=== PATIENT | female | born 1980 | race Caucasian/White ===

== ENCOUNTER 2018-02-13 11:49 | Emergency (ER) | payer BC ==
--- OUTSIDE RECORDS SUMMARY | 2018-02-13 11:52 | XMS REPORT | Clinical Summary ---
:1980 Author Organization [facility] Address [address] [place] [address] Care Team Providers Name Role Phone Tessa Montano MD Primary Care Provider Allergies Active Allergy Reactions Severity Noted Date Comments Iodine Swelling High 03/26/2016 Blisters, peeling Medications Medication Sig Dispensed Refills Start Date End Date Status busPIRone (BUSPAR) Take 7.5 mg by 0 Active 7.5 MG tablet mouth 3 (three) times a day. phentermine Take 37.5 mg by 0 04/17/2017 Discontinued (ADIPEX-P) 37.5 MG mouth every capsule morning. IBUPROFEN ORAL Take by mouth 0 05/11/2017 Discontinued as needed. nicotine Chew 1 each (2 100 each 1 06/15/2017 07/15/2017 polacrilex mg total) as (NICORETTE) 2 mg needed for gum smoking cessation (every 1-2 hours as needed to decrease smoking urge) for up to 30 days. nicotine Chew 1 each (2 100 each 0 06/15/2017 07/15/2017 polacrilex mg total) as (NICORETTE) 2 mg needed for gumIndications: smoking Smoker cessation for up to 30 days. Active Problems Problem Noted Date Class 2 obesity due to excess calories with body mass index (BMI) of 36.0 06/2017 to 36.9 in adult History of ovarian cancer 05/04/2017 Encounters Date Type Specialty Care Team Description 08/11/2017 Documentation Oncology Emily Bocanegra MD 08/05/2017 Office Visit Oncology Emily Bocanegra Abnormal mammogram MD Sinan (Primary Dx) 08/05/2017 Hospital Encounter Radiology Emily Bocanegra H/O benign breast biopsy; MD Sinan Abnormal mammogram 08/05/2017 Hospital Encounter Radiology Emily Bocanegra H/Radhika benign breast biopsy; MD Sinan Abnormal mammogram 08/04/2017 Telephone Oncology Emily oBcanegra MD 06/25/2017 Telephone Oncology Emily Bocanegra MD 06/15/2017 Lab Lab Emily Bocanegra MD 06/15/2017 Lab Lab Emily Bocanegra H/Radhika benign breast biopsy; MD Sinan Abnormal mammogram 06/15/2017 Office Visit Oncology Emily Bocanegra/Radhika benign breast biopsy ( Primary Dx); MD Sinan Abnormal mammogram; Smoker; Class 2 obesity without serious comorbidity with body mass index (BMI) of 36.0 to 36.9 in adult, unspecified obesity type; Family history of ovarian cancer 06/03/2017 Hospital Encounter Radiology Levon Lau Abnormal Kam CHIU MD breast 06/03/2017 Hospital Encounter Levon Kenyon Breast giancarlo Humphrey MD 06/03/2017 Hospital Encounter Levon Kenyon L., MD breast 06/03/2017 Telephone Obstetrics and Levon Lau Gynecology MD Kam 06/02/2017 Telephone Obstetrics Levon Chappell Gynecology MD Kam 05/28/2017 Hospital Encounter Levon Kenyon MD 05/28/2017 Hospital Encounter Levon Kenyon MD 05/28/2017 Hospital Encounter Levon Kenyon MD 05/28/2017 Hospital Encounter Levon Kenyon MD 05/28/2017 Hospital Encounter Radiology Levon Lau MD 05/28/2017 Hospital Encounter Radiology Levon Lau MD 05/28/2017 Hospital Encounter Levon Kenyon MD 05/28/2017 Hospital Encounter Levon Kenyon Breast giancarlo Humphrey MD 05/28/2017 Hospital Encounter Levon Kenyon MD 05/20/2017 Transcribe Orders Levon Kenyon MD (Primary Dx) 05/20/2017 Transcribe Orders Radiology Levon Lau Breast giancarlo Humphrey MD (Primary Dx) 05/20/2017 Transcribe Orders Radiology Levon Lau MD 05/20/2017 Transcribe Orders Radiology Levon Lau MD 05/20/2017 Transcribe Orders Radiology Levon Lau Breast giancarlo Humphrey MD (Primary Dx) 05/19/2017 Telephone Obstetrics Levon Chappell MD 05/18/2017 Orders Only Obstetrics and Ayala, Mya, Abnormal MRI, Gynecology MA breast (Primary Dx) 05/18/2017 Telephone Gynecologic Oncology Levon Lau MD 05/14/2017 Telephone Gynecologic Oncology Jamie Hernandez MD 05/13/2017 Telephone Gynecologic Oncology Jamie Hernandez MD 05/12/2017 Orders Only Obstetrics and Levon Lau MD 05/11/2017 Hospital Encounter Radiology Jamie Hernandez MD Abnormal mammogram 05/05/2017 Orders Only Gynecologic Oncology Jw, Abnormal mammogram MICHAEL Gil (Primary Dx) 05/04/2017 Office Visit Levon Montalvo History of ovarian cancer (Primary Dx); Bhaskar Humphrey MD Class 2 obesity due to excess calories without serious comorbidity with body mass index (BMI) of 36.0 to 36.9 in adult 05/04/2017 Telephone Gynecologic Oncology Jamie Hernandez MD 04/29/2017 Transcribe Orders Radiology Jamie Hernandez MD Abnormal mammogram (Primary Dx) 04/29/2017 Telephone Gynecologic Oncology Jamie Hernandez MD 04/28/2017 Orders Only Gynecologic Oncology [place], Left breast mass MICHAEL Gil (Primary Dx) 04/27/2017 Hospital Encounter Radiology Jamie Hernandez MD Breast density; Abnormal mammogram 04/27/2017 Hospital Encounter Radiology Jamie Hernandez MD Breast density; Abnormal mammogram 04/27/2017 Hospital Encounter Radiology Jamie Hernandez MD Breast density; Abnormal mammogram 04/27/2017 Telephone Gynecologic Oncology Lisandra Proctor RN 04/27/2017 Documentation Gynecologic Oncology Lisandra Proctor RN 04/27/2017 Telephone Radiology Carmelita Stanley RN 04/24/2017 Telephone Gynecologic Oncology Jamie Hernandez MD 04/17/2017 Telephone Obstetrics and Jamie Hernandez MD Gynecology 04/17/2017 Telephone Radiology Julio Lewis RN 04/16/2017 Orders Only Gynecologic Oncology [place], Breast mass, left ( Primary Dx); MICHAEL Gil Breast density; Abnormal mammogram 04/15/2017 Telephone Gynecologic Oncology Jamie Hernandez MD 04/13/2017 Lab Lab Jamie Hernandez MD History of ovarian cancer 04/13/2017 Office Visit Gynecologic Oncology Jamie Hernandez MD History of ovarian cancer (Primary Dx) after 02/12/2017 Family History Medical History Relation Name Comments Uterine cancer Maternal Aunt Cervical cancer Maternal Grandfather Stomach cancer Paternal Aunt Cervical cancer Paternal Grandfather Relation Name Status Comments Maternal Aunt Maternal Grandfather Paternal Aunt Paternal Grandfather Social History Tobacco Use Types Packs/Day Years Used Date Current Every Day Smoker Cigarettes 0.5 Started: 03/26/1996 Smokeless Tobacco: Never Used Tobacco Cessation: Ready to Quit: Yes Comments: states ' i will be quitting' Alcohol Use Drinks/Week oz/Week Comments No Sex Assigned at Date Recorded Not on file Job Start Date Occupation Industry Not on file Not on file Not on file Travel History Travel Start Travel End No recent travel history available. Last Filed Vital Signs Vital Sign Reading Time Taken Blood Pressure 136/79 08/05/2017 11:33 AM CDT Pulse 88 08/05/2017 11:33 AM CDT Temperature 36.6 C (97.9 F) 08/05/2017 11:33 AM CDT Respiratory Rate - - Oxygen Saturation - - Inhaled Oxygen Concentration - - Weight 89.6 kg (197 lb 9 oz) 08/05/2017 11:33 AM CDT Height 157.5 cm (5' 2") 08/05/2017 11:33 AM CDT Body Mass Index 36.13 08/05/2017 11:33 AM CDT Plan of Treatment Health Maintenance Due Date Last Done Comments CERVICAL CANCER SCREENING 01/13/2001 INFLUENZA VACCINE 09/30/2017 Procedures Procedure Name Priority Date/Time Associated Comments Diagnosis US BREAST COMPLETE Routine 08/05/2017 11:24 H/O benign breast Results for this BILATERAL AM CDT biopsy procedure are in Abnormal mammogram the results section. MAMMO DIAGNOSTIC W CAD Routine 08/05/2017 10:15 H/O benign breast Results for this BILATERAL AM CDT biopsy procedure are in Abnormal mammogram the results section. ESTRADIOL LEVEL Routine 06/15/2017 10:14 H/O benign breast Results for this AM CDT biopsy procedure are in the results section. LUTEINIZING HORMONE Routine 06/15/2017 10:14 H/O benign breast Results for this AM CDT biopsy procedure are in the results section. FOLLICLE STIMULATING Routine 06/15/2017 10:14 H/O benign breast Results for this HORMONE AM CDT biopsy procedure are in Abnormal mammogram the results section. MAMMO DIAGNOSTIC W CAD Routine 06/03/2017 2:19 Abnormal MRI, Results for this RIGHT PM CDT breast procedure are in the results section. SURGICAL PATHOLOGY Routine 06/03/2017 2:17 Results for this REQUEST PM CDT procedure are in the results section. MRI BREAST W WO Routine 06/03/2017 1:43 Breast mass Results for this CONTRAST RIGHT PM CDT procedure are in the results section. MRI BREAST BIOPSY Routine 06/03/2017 1:42 Abnormal MRI, Results for this RIGHT PM CDT breast procedure are in the results section. MAMMO DIAGNOSTIC Routine 05/28/2017 11:57 Breast mass Results for this BIOPSY FOLLOW UP (NO AM CDT procedure are in CHARGE) the results section. STEREOTACTIC BREAST Routine 05/28/2017 11:56 Breast mass Results for this BIOPSY LEFT AM CDT procedure are in the results section. SURGICAL PATHOLOGY Routine 05/28/2017 11:47 Results for this REQUEST AM CDT procedure are in the results section. MRI BREAST W WO Routine 05/11/2017 10:27 Abnormal mammogram Results for this CONTRAST BILATERAL AM CDT procedure are in the results section. MAMMO BREAST Routine 04/27/2017 11:25 Breast density Results for this DIAGNOSTIC AM FIFTH HAND Abnormal mammogram procedure are in TOMOSYNTHESIS LEFT the results section. INHIBIN B Routine 04/13/2017 4:58 History of ovarian Results for this PM FIFTH HAND cancer procedure are in the results section. MAMMO EXTERNAL STUDY Routine 03/31/2017 11:07 Results for this AM FIF[facility] procedure are in the results section. US BREAST EXTERNAL Routine 03/31/2017 11:06 Results for this STUDY AM FIF[facility] HAND procedure are in the results section. MAMMO EXTERNAL STUDY Routine 02/26/2017 11:08 Results for this AM FIFTH HAND procedure are in the results section. after 02/12/2017 Results US Breast Complete Bilateral (08/05/2017 11:24 AM CDT) Addenda Addendum by Kannan Rocha MD on 08/12/2017 1:18 PM ADDENDUM #1 Addendum comparison report. The prior mammograms and ultrasounds from 2012 are here for comparison that were tear at the time of original study of 08/05/2017. There appears to be a intramammary lymph node in the left breast with the same measurement as today's exam, largest 10.5 mm. No obvious changes. Change of impression: Prominent intramammary lymph node left axillary tail. Recommendation: follow-up 1 year. BI-RADS Category 2: Benign findings. Annual mammography recommended Narrative Performed At EXAMINATION:MAMMO DIAGNOSTIC W CAD BILATERAL, US BREAST COMPLETE [facility] BILATERAL INDICATION:Z98.890. Other specified postprocedure states. R92.8. Other abnormal and inconclusive findings on diagnostic imaging. 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 An MR biopsy revealed the same finding in May 2017 on the right. This is six-month follow-up from January 2017 mammograms. COMPARISON:Follow-up from 06/03/2017 and mammograms go back to February 26, 2017, at outside institution mammograms. FINDINGS: There are scattered areas of fibroglandular density.There is some mild architectural distortion noted in the right upper outer quadrant associated with a small M clip, the MR guided biopsy. There is a biopsy clip with an associated small hematoma noted in the upper central posterior left breast. The transverse measurement is 9.5 mm. In the left upper outer quadrant or axillary tail of the left breast is a mass that appears to contain fat density, thus suggestive of a intramammary lymph node measuring around 14 mm x 9 mm. Bilateral whole breast sonography was performed with close supervision. This included sonographic evaluation of all 4 quadrants as well as the subareolar regions bilaterally.] Shows a oval well-circumscribed hypoechoic 4.3 mm x 1.9 mm mass or small complex cyst in the 12:00 position. The postbiopsy scar from MR guided biopsy is seen in the right upper outer quadrant. Left breast: There is a hypoechoic lobulated solid mass measuring 1.05 cm x 0.4 cm x 0.46 cm this suggests a intramammary lymph node at mid depth toward the axillary tail. This appears to be the same mammographic finding in the left upper outer quadrant. IMPRESSION:Possibly just prominent intramammary lymph node left axillary tail versus a mass. RECOMMENDATION: Recommend ultrasound-guided core biopsy. BI-RADS 4: SUSPICIOUS. Mildly suspicious characteristics. [id number] Procedure Note Hm Interface, Radiology Results - 08/05/2017 11:44 AM CDT EXAMINATION: MAMMO DIAGNOSTIC W CAD BILATERAL, US BREAST COMPLETE BILATERAL INDICATION: Z98.890. Other specified postprocedure states. R92.8. Other abnormal and inconclusive findings on diagnostic imaging. 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 An MR biopsy revealed the same finding in May 2017 on the right. This is six-month follow-up from January 2017 mammograms. COMPARISON: Follow-up from 06/03/2017 and mammograms go back to February 26, 2017, at outside institution mammograms. FINDINGS: There are scattered areas of fibroglandular density. There is some mild architectural distortion noted in the right upper outer quadrant associated with a small M clip, the MR guided biopsy. There is a biopsy clip with an associated small hematoma noted in the upper central posterior left breast. The transverse measurement is 9.5 mm. In the left upper outer quadrant or axillary tail of the left breast is a mass that appears to contain fat density, thus suggestive of a intramammary lymph node measuring around 14 mm x 9 mm. Bilateral whole breast sonography was performed with close supervision. This included sonographic evaluation of all 4 quadrants as well as the subareolar regions bilaterally. ] Shows a oval well-circumscribed hypoechoic 4.3 mm x 1.9 mm mass or small complex cyst in the 12:00 position. The postbiopsy scar from MR guided biopsy is seen in the right upper outer quadrant. Left breast: There is a hypoechoic lobulated solid mass measuring 1.05 cm x 0.4 cm x 0.46 cm this suggests a intramammary lymph node at mid depth toward the axillary tail. This appears to be the same mammographic finding in the left upper outer quadrant. IMPRESSION: Possibly just prominent intramammary lymph node left axillary tail versus a mass. RECOMMENDATION: Recommend ultrasound-guided core biopsy. BI-RADS 4: SUSPICIOUS. Mildly suspicious characteristics. [email or web address] Performing Organization Address City/State/Zipcode Phone Number [facility] [address] [place] [address] Mammo Diagnostic w Cad Bilateral (08/05/2017 10:15 AM CDT) Addenda Addendum by Kannan Rocha MD on 08/12/2017 1:18 PM ADDENDUM #1 Addendum comparison report. The prior mammograms and ultrasounds from 2012 are here for comparison that were tear at the time of original study of 08/05/2017. There appears to be a intramammary lymph node in the left breast with the same measurement as today's exam, largest 10.5 mm. No obvious changes. Change of impression: Prominent intramammary lymph node left axillary tail. Recommendation: follow-up 1 year. BI-RADS Category 2: Benign findings. Annual mammography recommended Narrative Performed At EXAMINATION:MAMMO DIAGNOSTIC W CAD BILATERAL, US BREAST COMPLETE [facility] BILATERAL INDICATION:Z98.890. Other specified postprocedure states. R92.8. Other abnormal and inconclusive findings on diagnostic imaging. 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 An MR biopsy revealed the same finding in May 2017 on the right. This is six-month follow-up from January 2017 mammograms. COMPARISON:Follow-up from 06/03/2017 and mammograms go back to February 26, 2017, at outside institution mammograms. FINDINGS: There are scattered areas of fibroglandular density.There is some mild architectural distortion noted in the right upper outer quadrant associated with a small M clip, the MR guided biopsy. There is a biopsy clip with an associated small hematoma noted in the upper central posterior left breast. The transverse measurement is 9.5 mm. In the left upper outer quadrant or axillary tail of the left breast is a mass that appears to contain fat density, thus suggestive of a intramammary lymph node measuring around 14 mm x 9 mm. Bilateral whole breast sonography was performed with close supervision. This included sonographic evaluation of all 4 quadrants as well as the subareolar regions bilaterally.] Shows a oval well-circumscribed hypoechoic 4.3 mm x 1.9 mm mass or small complex cyst in the 12:00 position. The postbiopsy scar from MR guided biopsy is seen in the right upper outer quadrant. Left breast: There is a hypoechoic lobulated solid mass measuring 1.05 cm x 0.4 cm x 0.46 cm this suggests a intramammary lymph node at mid depth toward the axillary tail. This appears to be the same mammographic finding in the left upper outer quadrant. IMPRESSION:Possibly just prominent intramammary lymph node left axillary tail versus a mass. RECOMMENDATION: Recommend ultrasound-guided core biopsy. BI-RADS 4: SUSPICIOUS. Mildly suspicious characteristics. [id number] Performing Organization Address City/[facility]/Zipcode Phone Number [facility] [address] [place] [phone] Estradiol level (06/15/2017 10:14 AM CDT) Estradiol 76 pg/mL [facility] DEPARTMENT OF PATHOLOGY AND Comment: [employer] MEDICINE Menstruating females (by day in cycle relative to LH peak) Follicular phase13 - 166 pg/mL Ovulation Phase 86 - 498 pg/mL Luteal phase44 - 211 pg/mL Post-menopause 0 - 55pg/mL 1st Trimester Pregnacy 215 - >4300 pg/mL Male8 - 43 pg/mL Specimen Plasma specimen Performing Organization Address [facility] Phone Number [facility] DEPARTMENT OF PATHOLOGY AND [address] [place] [phone] [facility] Luteinizing hormone (06/15/2017 10:14 AM CDT) Luteinizing hormone 2.9 mIU/mL [facility] DEPARTMENT OF PATHOLOGY Comment: AND [employer] MEDICINE Female Reference Ranges: Follicular phase 2.4-12.6 mIU/ml Ovulation phase14.0 -95.6 mIU/ml Luteal phase 1.0-11.4 mIU/ml Postmenopause7.7-58.5 mIU/ml Specimen Plasma specimen Performing Organization Address [facility] Phone Number [facility] DEPARTMENT OF PATHOLOGY AND [address] [place] [phone] [facility] Follicle stimulating hormone (06/15/2017 10:14 AM CDT) Follicle stimulating 4.9 mIU/mL [facility] DEPARTMENT OF hormone Comment: PATHOLOGY AND GENOMIC Reference Ranges for Adult Female: MEDICINE Follicular Phase3.5 - 12.5mIU/ml Ovulation Phase 4.7 - 21.5mIU/ml Luteal Phase1.7 - 7.7 mIU/ml Hoqhixcclgvflz20.8 - 134.8mIU/ml Specimen Plasma specimen Performing Organization Address City/[facility] Phone Number [facility] DEPARTMENT OF PATHOLOGY AND [address] [place] [phone] [facility] Diagnostic w Cad Right (06/03/2017 2:19 PM CDT) Addenda Addendum by Compa Crouch MD on 06/05/2017 10:02 AM ADDENDUM #1 ADDENDUM: The final result of the right breast 10 o'clock needle biopsy is microfocal pseudoangiomatous stromal hyperplasia, apocrine metaplasia, columnar cell change and hyperplasia, adenosis and duct ectasia. No atypia or malignancy. This benign result is concordant with imaging findings. Recommend 6 month follow-up bilateral contrast enhanced MRI to re-evaluate the biopsy site and additional area of nonmass enhancement in the right breast. The patient will be due for 6 month follow-up mammography of the left breast at that time which should be performed along with the right breast prior to the MRI. The patient was notified of the final result and recommendations via telephone 06/05/2017 at 10:00 AM. Narrative Performed At FULL RESULT: [facility] Examination: MRI BREAST BIOPSY RIGHT, MRI BREAST W WO CONTRAST RIGHT, MAMMO DIAGNOSTIC W CAD RIGHT 06/03/2017 1:00 PM Clinical History: 37-year-old woman with right breast nonmass enhancement presenting for biopsy. Comparison: Breast MRI 05/11/2017. Technique: Multiplanar, multisequence MR imaging of the right breast was performed before and after the intravenous administration of 8.9 mL of Gadavist per protocol. Findings: The lesion in question was identified in the right breast at 10 o'clock position, 7 cm from the nipple. The lesion was located 1.4 cm deep to the overlying lateral skin. Procedure(s): MRI-Guided Breast Biopsy with Localization Device Placement - Right Primary Proceduralist: Compa Crouch Consent: The procedure, risks, indications, and alternatives were explained. All questions were answered and informed consent was obtained. Procedure in Detail: A time-out was performed prior to the start of the procedure and the correct patient, procedure, presence of consent, site, and side were confirmed with all members of the team. The patient was brought into the MRI suite, and the skin of the right breast was cleansed with chlorhexidine. The patient was placed prone on the [place] table in the breast coil with the right breast gently immobilized by the biopsy grid. A fiducial marker was placed in the biopsy grid. A limited axial dynamic scan was obtained before and after IV contrast administration. The skin overlying the lesion was again cleansed with chlorhexidine. Local anesthesia was administered in the form of Lidocaine 1 percent buffered with sodium bicarbonate without and with epinephrine. A skin estella was made. The biopsy trocar was advanced to the targeted position using lateral to medial approach. The position was confirmed on subsequent axial imaging. Biopsy was performed with a 9-gauge OneName ATEC device, and 13 cores were obtained. Axial imaging was performed after the sampling was completed. An M-shaped was deployed into the biopsy cavity. At the conclusion of the procedure, pressure was held until cessation of bleeding. The skin estella was closed with Steri-strips and covered with a bandage. Post-procedure Mammography: Post-procedure mammography was performed. The marker clip is within the biopsy cavity. Estimated Blood Loss: Minimal. Specimen(s) Removed: Yes. Immediate Complications: None. Post-procedure diagnosis: Abnormal MRI. Disposition: The patient tolerated the procedure well and was discharged home in good condition. IMPRESSION: Technically successful MRI-guided biopsy of the right breast for nonmass enhancement. Final results will be reported in an addendum. [id number] Performing Organization Address City/State/Zipcode Phone Number [facility] [address] [place] [address] Surgical pathology request (06/03/2017 2:17 PM CDT)Only the most recent of2 resultswithin the time period is included. [facility] DEPARTMENT OF PATHOLOGY AND GENOMIC MEDICINE Surgical pathology report See link below for PDF [facility] DEPARTMENT OF Lab Report PATHOLOGY AND GENOMIC MEDICINE Result status This is Final Report to [facility] DEPARTMENT OF [id number] PATHOLOGY AND GENOMIC MEDICINE Performing Organization Address City/[facility]/Zipcode Phone Number [facility] DEPARTMENT OF PATHOLOGY [phone] [place] [id number] AND GENOMIC MEDICINE MRI Breast W Wo Contrast Right Mc (06/03/2017 1:43 PM CDT) Addenda Addendum by Compa Crouch MD on 06/05/2017 10:02 AM ADDENDUM #1 ADDENDUM: The final result of the right breast 10 o'clock needle biopsy is microfocal pseudoangiomatous stromal hyperplasia, apocrine metaplasia, columnar cell change and hyperplasia, adenosis and duct ectasia. No atypia or malignancy. This benign result is concordant with imaging findings. Recommend 6 month follow-up bilateral contrast enhanced MRI to re-evaluate the biopsy site and additional area of nonmass enhancement in the right breast. The patient will be due for 6 month follow-up mammography of the left breast at that time which should be performed along with the right breast prior to the MRI. The patient was notified of the final result and recommendations via telephone 06/05/2017 at 10:00 AM. Narrative Performed At FULL RESULT: [facility] Examination: MRI BREAST BIOPSY RIGHT, MRI BREAST W WO CONTRAST RIGHT, MAMMO DIAGNOSTIC W CAD RIGHT 06/03/2017 1:00 PM Clinical History: 37-year-old woman with right breast nonmass enhancement presenting for biopsy. Comparison: Breast MRI 05/11/2017. Technique: Multiplanar, multisequence MR imaging of the right breast was performed before and after the intravenous administration of 8.9 mL of Gadavist per protocol. Findings: The lesion in question was identified in the right breast at 10 o'clock position, 7 cm from the nipple. The lesion was located 1.4 cm deep to the overlying lateral skin. Procedure(s): MRI-Guided Breast Biopsy with Localization Device Placement - Right Primary Proceduralist: Compa Crouch Consent: The procedure, risks, indications, and alternatives were explained. All questions were answered and informed consent was obtained. Procedure in Detail: A time-out was performed prior to the start of the procedure and the correct patient, procedure, presence of consent, site, and side were confirmed with all members of the team. The patient was brought into the MRI suite, and the skin of the right breast was cleansed with chlorhexidine. The patient was placed prone on the [place] table in the breast coil with the right breast gently immobilized by the biopsy grid. A fiducial marker was placed in the biopsy grid. A limited axial dynamic scan was obtained before and after IV contrast administration. The skin overlying the lesion was again cleansed with chlorhexidine. Local anesthesia was administered in the form of Lidocaine 1 percent buffered with sodium bicarbonate without and with epinephrine. A skin estella was made. The biopsy trocar was advanced to the targeted position using lateral to medial approach. The position was confirmed on subsequent axial imaging. Biopsy was performed with a 9-gauge OneName ATEC device, and 13 cores were obtained. Axial imaging was performed after the sampling was completed. An M-shaped was deployed into the biopsy cavity. At the conclusion of the procedure, pressure was held until cessation of bleeding. The skin estella was closed with Steri-strips and covered with a bandage. Post-procedure Mammography: Post-procedure mammography was performed. The marker clip is within the biopsy cavity. Estimated Blood Loss: Minimal. Specimen(s) Removed: Yes. Immediate Complications: None. Post-procedure diagnosis: Abnormal MRI. Disposition: The patient tolerated the procedure well and was discharged home in good condition. IMPRESSION: Technically successful MRI-guided biopsy of the right breast for nonmass enhancement. Final results will be reported in an addendum. [id number] Performing Organization Address City/State/Zipcode Phone Number [facility] [address] [place] [address] MRI Breast Biopsy Right (06/03/2017 1:42 PM CDT) Addenda Addendum by Compa Crouch MD on 06/05/2017 10:02 AM ADDENDUM #1 ADDENDUM: The final result of the right breast 10 o'clock needle biopsy is microfocal pseudoangiomatous stromal hyperplasia, apocrine metaplasia, columnar cell change and hyperplasia, adenosis and duct ectasia. No atypia or malignancy. This benign result is concordant with imaging findings. Recommend 6 month follow-up bilateral contrast enhanced MRI to re-evaluate the biopsy site and additional area of nonmass enhancement in the right breast. The patient will be due for 6 month follow-up mammography of the left breast at that time which should be performed along with the right breast prior to the MRI. The patient was notified of the final result and recommendations via telephone 06/05/2017 at 10:00 AM. Narrative Performed At FULL RESULT: [facility] Examination: MRI BREAST BIOPSY RIGHT, MRI BREAST W WO CONTRAST RIGHT, MAMMO DIAGNOSTIC W CAD RIGHT 06/03/2017 1:00 PM Clinical History: 37-year-old woman with right breast nonmass enhancement presenting for biopsy. Comparison: Breast MRI 05/11/2017. Technique: Multiplanar, multisequence MR imaging of the right breast was performed before and after the intravenous administration of 8.9 mL of Gadavist per protocol. Findings: The lesion in question was identified in the right breast at 10 o'clock position, 7 cm from the nipple. The lesion was located 1.4 cm deep to the overlying lateral skin. Procedure(s): MRI-Guided Breast Biopsy with Localization Device Placement - Right Primary Proceduralist: Compa Crouch Consent: The procedure, risks, indications, and alternatives were explained. All questions were answered and informed consent was obtained. Procedure in Detail: A time-out was performed prior to the start of the procedure and the correct patient, procedure, presence of consent, site, and side were confirmed with all members of the team. The patient was brought into the MRI suite, and the skin of the right breast was cleansed with chlorhexidine. The patient was placed prone on the [place] table in the breast coil with the right breast gently immobilized by the biopsy grid. A fiducial marker was placed in the biopsy grid. A limited axial dynamic scan was obtained before and after IV contrast administration. The skin overlying the lesion was again cleansed with chlorhexidine. Local anesthesia was administered in the form of Lidocaine 1 percent buffered with sodium bicarbonate without and with epinephrine. A skin estella was made. The biopsy trocar was advanced to the targeted position using lateral to medial approach. The position was confirmed on subsequent axial imaging. Biopsy was performed with a 9-gauge [facility] ATEC device, and 13 cores were obtained. Axial imaging was performed after the sampling was completed. An M-shaped was deployed into the biopsy cavity. At the conclusion of the procedure, pressure was held until cessation of bleeding. The skin estella was closed with Steri-strips and covered with a bandage. Post-procedure Mammography: Post-procedure mammography was performed. The marker clip is within the biopsy cavity. Estimated Blood Loss: Minimal. Specimen(s) Removed: Yes. Immediate Complications: None. Post-procedure diagnosis: Abnormal MRI. Disposition: The patient tolerated the procedure well and was discharged home in good condition. IMPRESSION: Technically successful MRI-guided biopsy of the right breast for nonmass enhancement. Final results will be reported in an addendum. [id number] Procedure Note Hm Interface, Radiology Results Incoming - 06/03/2017 5:08 PM CDT FULL RESULT: Examination: MRI BREAST BIOPSY RIGHT, MRI BREAST W WO CONTRAST RIGHT, MAMMO DIAGNOSTIC W CAD RIGHT 06/03/2017 1:00 PM Clinical History: 37-year-old woman with right breast nonmass enhancement presenting for biopsy. Comparison: Breast MRI 05/11/2017. Technique: Multiplanar, multisequence MR imaging of the right breast was performed before and after the intravenous administration of 8.9 mL of Gadavist per protocol. Findings: The lesion in question was identified in the right breast at 10 o'clock position, 7 cm from the nipple. The lesion was located 1.4 cm deep to the overlying lateral skin. Procedure(s): MRI-Guided Breast Biopsy with Localization Device Placement - Right Primary Proceduralist: Compa Crouch Consent: The procedure, risks, indications, and alternatives were explained. All questions were answered and informed consent was obtained. Procedure in Detail: A time-out was performed prior to the start of the procedure and the correct patient, procedure, presence of consent, site, and side were confirmed with all members of the team. The patient was brought into the MRI suite, and the skin of the right breast was cleansed with chlorhexidine. The patient was placed prone on the [place] table in the breast coil with the right breast gently immobilized by the biopsy grid. A fiducial marker was placed in the biopsy grid. A limited axial dynamic scan was obtained before and after IV contrast administration. The skin overlying the lesion was again cleansed with chlorhexidine. Local anesthesia was administered in the form of Lidocaine 1 percent buffered with sodium bicarbonate without and with epinephrine. A skin estella was made. The biopsy trocar was advanced to the targeted position using lateral to medial approach. The position was confirmed on subsequent axial imaging. Biopsy was performed with a 9-gauge [facility] ATEC device, and 13 cores were obtained. Axial imaging was performed after the sampling was completed. An M-shaped was deployed into the biopsy cavity. At the conclusion of the procedure, pressure was held until cessation of bleeding. The skin estella was closed with Steri-strips and covered with a bandage. Post-procedure Mammography: Post-procedure mammography was performed. The marker clip is within the biopsy cavity. Estimated Blood Loss: Minimal. Specimen(s) Removed: Yes. Immediate Complications: None. Post-procedure diagnosis: Abnormal MRI. Disposition: The patient tolerated the procedure well and was discharged home in good condition. IMPRESSION: Technically successful MRI-guided biopsy of the right breast for nonmass enhancement. Final results will be reported in an addendum. [id number] [facility] Organization Address City/State/Zipcode Phone Number [facility] [address] [place] [address] Mammo Diagnostic Biopsy Follow Up (No Charge) (05/28/2017 11:57 AM CDT) Addenda Addendum by Sarbjit Payne MD on 06/03/2017 4:12 PM ADDENDUM #1 Pathology from the stereotactic guided core needle biopsy of the left breast is reported by Dr. Abner Banks as pseudoangiomatous stromal hyperplasia. No atypia or malignancy. For complete findings please see Dr. Banks's report. This benign histology is concordant with imaging appearance. Recommend six-month follow-up diagnostic mammogram with 3-D tomosynthesis. Findings and recommendations discussed with the patient on 06/03/2017 at 9:35 AM by Pat Wright RN. Narrative Performed At PROCEDURE: MAMMO DIAGNOSTIC BIOPSY FOLLOW UP, STEREOTACTIC BREAST BIOPSY [facility] HISTORY: 37-year-old patient with an asymmetry in the left breast for which stereotactic guided biopsy is recommended. CONSENT:Informed consent for stereotactic guided core needle biopsy/biopsies of the left breast was obtained following a detailed discussion of the procedure, alternatives, risks, and complications including hemorrhage, infection, and clip migration. TECHNIQUE:A time out was performed by the team prior to the procedure to verify the patient identity, lesion site(s), and pathology specimen labels. The stereotactic guided core needle biopsy was performed with a 9 gauge vacuum-assisted core needle under the usual aseptic conditions and 1% lidocaine with and without epinephrine local anesthetic. 8 core samples were obtained and submitted to pathology.Post biopsy tomosynthesis demonstrates satisfactory position of the biopsy needle and complete resolution of the targeted asymmetry.A bowtie-shaped metal tissue marker was deployed at the biopsy site. The patient tolerated the procedure well without complications. FINDINGS:Post biopsy CC and ML mammographic views demonstrate satisfactory position of the biopsy clip. IMPRESSION: Technically successful stereotactic guided core needle biopsy of the left breast. Awaiting final histology. [email or web address] Performing Organization Address City/State/Zipcode Phone Number [facility] [address] [place] [address] Stereotactic Breast Biopsy Left (05/28/2017 11:56 AM CDT) Addenda Addendum by Sarbjit Payne MD on 06/03/2017 4:12 PM ADDENDUM #1 Pathology from the stereotactic guided core needle biopsy of the left breast is reported by Dr. Abner Banks as pseudoangiomatous stromal hyperplasia. No atypia or malignancy. For complete findings please see Dr. Banks's report. This benign histology is concordant with imaging appearance. Recommend six-month follow-up diagnostic mammogram with 3-D tomosynthesis. Findings and recommendations discussed with the patient on 06/03/2017 at 9:35 AM by Pat Wright RN. Narrative Performed At PROCEDURE: MAMMO DIAGNOSTIC BIOPSY FOLLOW UP, STEREOTACTIC BREAST BIOPSY RADIANT LEFT HISTORY: 37-year-old patient with an asymmetry in the left breast for which stereotactic guided biopsy is recommended. CONSENT:Informed consent for stereotactic guided core needle biopsy/biopsies of the left breast was obtained following a detailed discussion of the procedure, alternatives, risks, and complications including hemorrhage, infection, and clip migration. TECHNIQUE:A time out was performed by the team prior to the procedure to verify the patient identity, lesion site(s), and pathology specimen labels. The stereotactic guided core needle biopsy was performed with a 9 gauge vacuum-assisted core needle under the usual aseptic conditions and 1% lidocaine with and without epinephrine local anesthetic. 8 core samples were obtained and submitted to pathology.Post biopsy tomosynthesis demonstrates satisfactory position of the biopsy needle and complete resolution of the targeted asymmetry.A bowtie-shaped metal tissue marker was deployed at the biopsy site. The patient tolerated the procedure well without complications. FINDINGS:Post biopsy CC and ML mammographic views demonstrate satisfactory position of the biopsy clip. IMPRESSION: Technically successful stereotactic guided core needle biopsy of the left breast. Awaiting final histology. [email or web address] Procedure Note Hm Interface, Radiology Results Incoming - 05/28/2017 12:13 PM CDT PROCEDURE: MAMMO DIAGNOSTIC BIOPSY FOLLOW UP, STEREOTACTIC BREAST BIOPSY LEFT HISTORY: 37-year-old patient with an asymmetry in the left breast for which stereotactic guided biopsy is recommended. CONSENT: Informed consent for stereotactic guided core needle biopsy/biopsies of the left breast was obtained following a detailed discussion of the procedure , alternatives, risks, and complications including hemorrhage, infection, and clip migration. TECHNIQUE: A time out was performed by the team prior to the procedure to verify the patient identity, lesion site(s), and pathology specimen labels. The stereotactic guided core needle biopsy was performed with a 9 gauge vacuum- assisted core needle under the usual aseptic conditions and 1% lidocaine with and without epinephrine local anesthetic. 8 core samples were obtained and submitted to pathology. Post biopsy tomosynthesis demonstrates satisfactory position of the biopsy needle and complete resolution of the targeted asymmetry. A bowtie- shaped metal tissue marker was deployed at the biopsy site. The patient tolerated the procedure well without complications. FINDINGS: Post biopsy CC and ML mammographic views demonstrate satisfactory position of the biopsy clip. IMPRESSION: Technically successful stereotactic guided core needle biopsy of the left breast. Awaiting final histology. [email or web address] Performing Organization Address City/State/Zipcode Phone Number [facility] [address] [place] [address] MRI Breast W Wo Contrast Bilateral Mc (05/11/2017 10:27 AM CDT) Narrative Performed At FULL RESULT: [facility] Examination: MRI BREAST W WO CONTRAST BILATERAL, 05/11/2017 9:30 AM Clinical History: A 37-year-old woman with personal history of Granulosa cell tumor of the ovary diagnosed and treated in 2017 presenting for further evaluation of a new left breast asymmetry identified on outside imaging status post aborted 2-D stereotactic biopsy. Indication:Abnormal mammogram Comparison: No prior breast MRI for comparison. Outside mammogram dated 2016 and ultrasound dated 03/31/2017 performed at [facility] in [place], [place]. Technique: Multiplanar, multisequence bilateral breast MRI was performed prior to and following the uneventful intravenous administration of 17.8 cc of Magnevist contrast. Computer aided detection was u tilized.The perfusion data was used to create kinetic contrast enhancement curves. The study included axial T-1, T-2, VIBRANT , delayed sagittal VIBRANT, and both axial and sagittal MIP's. Findings: The breast composition is scattered fibroglandular tissue. There is marked early background parenchymal enhancement. Right breast: There are multiple scattered foci of enhancement and heterogeneous nonmass enhancement throughout the right breast with the most notable area of non-mass enhancement seen in a some what linear distribution in the right 10 o'clock position 7 cm from the nipple measuring 2.6 x 1.1 cm (AP x TV). This finding demonstrates mixed progressive and plateau enhancement kinetics and has a possible corresponding asymmetry seen in the outer right breast on outside CC tomosynthesis. An additional similar appearing 1.1 x 0.7 cm area of focal nonmass enhancement is seen more posteriorly in the inner right breast 4 o'clock position 9 cm from the nipple (series 700 image 364). There is no clear mammographic correlate. Left breast: No suspicious masses or nonmass enhancement. Numerous enhancing foci, many with T2 hyperintense correlates, are seen throughout the breast in keeping with background parenchymal enhancement, fibrocystic change and/or intramammary lymph nodes. There is no clear suspicious MR correlate for the new central subcentimeter left breast asymmetry or cystic lesion in the 5 o'clock position identified on outside imaging. Lemuel Basins: There is no pathologic appearing lymphadenopathy in the visualized axillary or internal mammary regions. A nonspecific subcentimeter left internal mammary space node with preserved fatty hilum is seen (series 700 image 309). Extramammary findings: None. IMPRESSION: 1. Asymmetric non-mass enhancement in a somewhat linear distribution in the upper outer right breast may represent hormonal changes, however MR guided biopsy is recommended to exclude malignancy. An add itional smaller similar appearing area of non-mass enhancement is seen in the medial right breast which can be managed based on biopsy results. 2. No specific MRI features of left breast malignancy within limitations of marked background parenchymal enhancement. Previous outside imaging recommended stereotactic biopsy of a new subcentimeter lef t breast asymmetry. This finding was not amenable to 2-D stereotactic biopsy however tomosynthesis guidance may be of aid. 3. No pathologic appearing adenopathy within the imaged lemuel basins. ACR BI-RADS Category: 4.Suspicious.RecommendMR guided biopsy of the non -mass enhancement in the upper outer right breast. Stereotactic biopsy of the left breast is recommended based on findings seen on outside mammography. [id number] Performing Organization Address City/State/Zipcode Phone Number [facility] [address] [place] [address] Mammo Breast Diagnostic Tomosynthesis Left (04/27/2017 11:25 AM FIFTH HAND) Narrative Performed At PROCEDURE: MAMMO BREAST DIAGNOSTIC [facility] Computer aided detection with tomosynthesis was utilized for the interpretation. HISTORY:Patient presents for left breast stereotactic biopsy after an outside facility suggested it may be possible for a subcentimeter asymmetry identified in the posterior central left breast on CC imaging. COMPARISON: Outside imaging dated 03/31/2017 and 02/26/2017 DENSITY: The breast is composed of scattered fibroglandular densities. FINDINGS: The recently described asymmetry is identified in the posterior central left breast approximately 13 cm from the nipple on CC imaging. Spot magnification of the area demonstrates partial effacement. The asymmetry completely effaces with rolled views. Carlos synthesis images failed to demonstrate a true mass and 2 planes however carlos synthesis images do demonstrate a persistent moderately suspicious asymmetry in the area of mammographic concern. Stereotactic biopsy was not pursued. I would recommend bilateral breast MRI with and without contrast to define the level of suspicion of this lesion and better localize the area for biopsy if needed. IMPRESSION:Moderately suspicious asymmetry in the posterior central left breast in this patient with a history of ovarian cancer which is not amenable to stereotactic biopsy given its partial effacement with compression. Recommend bilateral breast MRI with and without contrast. If for any reason the MRI cannot be obtained, recommend attempt at carlos synthesis guided stereotactic biopsy. ACR BI-RADS Category 4. Suspicious. Recommend bilateral breast MRI with and without contrast. [id number] This facility is accredited by [employer] for Mammography. A negative x-ray report should not delay biopsy if a dominant or clinically suspicious mass is present.Not all cancers are identified by x-ray. Performing Organization Address City/State/Zipcode Phone Number [facility] [address] [place] [address] Inhibin B (04/13/2017 4:58 PM FIFTH HAND) Inhibin B <10 pg/mL [facility] Comment: INTERPRETIVE INFORMATION: Inhibin B MALE: 0-6 years ................. 40 - 630 pg/mL 7-10 years ................ 35 - 170 pg/mL 11-18 years ............... 50 - 475 pg/mL 19-45 years ............... 40 - 450 pg/mL Greater than or equal to 46 years ........ less than 200 pg/mL FEMALE: 0-6 years ................. less than73 pg/mL 7-10 years ................ less than 130 pg/mL 11-12 years ............... less than 186 pg/mL 13-18 years ............... less than 360 pg/mL Premenopausal ............. less than 290 pg/mL Follicular phase........... 10 - 290 pg/mL Postmenopausal ............ less than or equal to 16 pg/mL This test is performed using the Davina Santos Inhibin B LILIANA kit. Values obtained with different methodologies or kits cannot be used interchangeably. Test developed and characteristics determined by [email or web address]. See Compliance Statement D: [employer] Performed by [email or web address], [address] [place] [id number] [email or web address].[email or web address], Wilmer Zacarias MD - Lab. Director Specimen Serum Performing Organization Address [facility] Phone Number [facility] [address] [place] [address] Mammo External Study (03/31/2017 11:07 AM FIFTH HAND)Only the most recent of2 resultswithin the time period is included. Narrative Performed At This exam was not acquired at a [facility] facility and has not been HM RADIANT interpreted by a Confucianism Provider.The exam was imported into our imaging system for comparisons purposes. Performing Organization Address [facility] Cent[facility] Phone Number [facility] [address] [place] [address] US Breast External Study (03/31/2017 11:06 AM FIFTH HAND) Narrative Performed At This exam was not acquired at a [facility] facility and has not been HM RADIANT interpreted by a Confucianism Provider.The exam was imported into our imaging system for comparisons purposes. Performing Organization Address [facility] Cent[facility] Phone Number HM [facility] [address] [place] [address] after 02/12/2017 Insurance Payer Benefit Plan / Group Subscriber ID Type Phone Address BCBS BCBS CHOICE PPO/F[employer]ERAL EMPL PPO xxxxxxxxxxxx PPO (Home) [place] [address] Advance Directives Patient has advance care planning documents on file. For more information, please contact:Jose Ramon Espinal[address] [facility] [place] [address]
[2018-02-13 12:39] LABS: Urine Blood NEGATIVE (NEG); Urine Glucose NEGATIVE (NEG); Urine Protein NEGATIVE (NEG); Urine Specific Gravity 1.015 (1.005-1.030)
[2018-02-13] MEDS ORDERED: NA CHLORIDE 0.9% 1,000 ML ONE (12:41)
[2018-02-13] MEDS ORDERED: KETOROLAC 30 MG/ML INJ ONE (12:41)
[2018-02-13 12:53] LABS: Absolute Lymphocytes (CBC) 2.3 K/uL (0.7-4.9); Absolute Monocytes 0.9 K/uL (0.1-1.3); Absolute Neutrophil 8.7 K/uL (1.8-8.0); Basophils % 0.5 % (0-1.3); Eosinophils % 0.7 % (0-4.4); Hematocrit 39.5 % (36.0-45.0); Lymphocytes % 19.1 % (15.3-44.8); MCH 32.2 pg (27.0-35.0); MCV 92.9 fL (80-100); MPV 9.4 fL (7.6-11.3); Monocytes % 7.7 % (3.3-12.3); RBC Red Blood Cell Count 4.25 M/uL (3.86-4.86)
[2018-02-13 13:11] LABS: BUN Blood Urea Nitrogen 8 mg/dL (7-18); Bicarbonate 27 mmol/L (21-32); Glucose Level 99 mg/dL (74-106); Potassium 3.8 mmol/L (3.5-5.1); Sodium Level 139 mmol/L (136-145)
[2018-02-13 13:11] LABS: Urine Bacteria NONE SEEN /HPF (<20); Urine Culture Reflex Order NOT NEEDED; Urine RBC NONE SEEN /HPF (NONE SEEN)
[2018-02-13] MEDS ORDERED: FENTANYL CITR 100 MCG/2 ML ONE ×2 (13:14→16:24)
--- NOTE | 2018-02-13 14:24 | RAD REPORT ---
EXAM DESCRIPTION: US - Pelvis Complete - 02/13/2018 1:56 pm CLINICAL HISTORY: Pelvic pain COMPARISON: April 2017 FINDINGS: Hysterectomy and right oophorectomy performed 7.7 centimeter heterogeneous mass is present within the left adnexa containing blood flow. No significant free fluid IMPRESSION: 7.7 centimeter heterogeneous mass within left adnexa most likely representing an ovarian neoplasm . A benign ovarian mass considered less likely. Nonemergent MRI would be helpful for furthe r characterization
--- NOTE | 2018-02-13 15:57 | ER ---
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 Reports a feeling of pressure in the suprapubic area, nausea. Denies fever. Transition of care: patient was not received from another setting of care. Onset of symptoms was February 12, 2018. Risk Assessment: Do you want to hurt yourself or someone else? Patient reports no desire to harm self or others. Initial Sepsis Screen: Does the patient meet any 2 criteria? HR > 90 bpm. No. Patient's initial sepsis screen is negative. Does the patient have a suspected source of infection? Yes: Dysuria/Frequency/Urgency/UTI. Care prior to arrival: None. 11:51 Method Of Arrival: Ambulatory [facility] 11:51 Acuity: LORENA 3 aj1 Triage Assessment: 11:56 General: Appears in no apparent distress. uncomfortable, Behavior is cooperative, aj1 anxious, restless. Pain: Complains of pain in suprapubic area and left lower quadrant Pain currently is 10 out of 10 on a pain scale. Neuro: Level of Consciousness is awake, alert, obeys commands. Cardiovascular: Patient's skin is warm and dry. Respiratory: Airway is patent Respiratory effort is even, unlabored, Respiratory pattern is regular, symmetrical. GI: Reports lower abdominal pain, bloating, nausea. 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 - Social history:: Smoking status: Patient uses tobacco products, smokes one-half pack cigarettes per day. - Ebola Screening: : Patient denies travel to an Ebola-affected area in the 21 days before illness onset. Screenin:50 Abuse screen: Denies threats or abuse. Nutritional screening: No deficits noted. em Tuberculosis screening: No symptoms or risk factors identified. Fall Risk None identified. Assessment: 12:20 Reassessment: Patient appears in no apparent distress at this time. pt reports pain em medication has not helped, provider notified, new medication orders received. 12:50 General: Appears in no apparent distress. comfortable, Behavior is calm, cooperative, em Denies fever. Pain: Complains of pain in suprapubic area and abdomen Pain does not radiate. Pain currently is 10 out of 10 on a pain scale. Neuro: Level of Consciousness is awake, alert, obeys commands, Oriented to person, place, time, situation. Cardiovascular: Capillary refill < 3 seconds Patient's skin is warm and dry. Cardiovascular: Denies chest pain. Respiratory: Airway is patent Respiratory effort is even, unlabored, Respiratory pattern is regular, symmetrical. GI: Abdomen is round non-distended, Bowel sounds present X 4 quads. Abd is soft X 4 quads Abdomen is tender to palpation X 4 quads. : Urine is clear, Denies burning with urination, inability to void. EENT: No signs and/or symptoms were reported regarding the EENT system. Derm: Skin is intact, is healthy with good turgor, Skin is pink, warm \T\ dry. Musculoskeletal: Range of motion: intact in all extremities. 13:48 Reassessment: Patient and/or family updated on plan of care and expected duration. Pain em level reassessed. Patient is alert, oriented x 3, equal unlabored respirations, skin warm/dry/pink. ultrasound at bedside. 14:30 Reassessment: Patient appears in no apparent distress at this time. Patient and/or em family updated on plan of care and expected duration. Pain level reassessed. Patient is alert, oriented x 3, equal unlabored respirations, skin warm/dry/pink. 16:33 Reassessment: Patient appears in no apparent distress at this time. Patient and/or em family updated on plan of care and expected duration. Pain level reassessed. Patient is alert, oriented x 3, equal unlabored respirations, skin warm/dry/pink. Vital Signs: 11:56 BP 112 / 83; Pulse 96; Resp 20; Temp 97.0; Pulse Ox 100% on R/A; Weight 79.38 kg (R); aj1 Height 5 ft. 2 in. (157.48 cm) (R); Pain 10/10; 13:00 BP 133 / 81; Pulse 84; Resp 18; Pulse Ox 99% on R/A; Pain 10/10; em 14:00 BP 130 / 88; Pulse 85; Resp 18; Pulse Ox 98% on R/A; em 16:35 BP 121 / 76; Pulse 79; Resp 18; Pulse Ox 100% on R/A; em 11:56 Body Mass Index 32.01 (79.38 kg, 157.48 cm) aj1 ED Course: 11:50 Patient arrived in ED. sb2 11:51 out of town, doctor is Private Physician. sb2 11:54 Triage completed. aj1 11:56 Arm band placed on Patient placed in an exam room. aj1 12:04 Bill Hall LVN is Primary Nurse. em 12:05 Pulse ox on. NIBP on. jp3 12:05 Urine collected: clean catch specimen, clear, rose colored, Amount Voided: 80mL. jp3 12:10 Francisco Pimentel MD is Attending Physician. gs 12:22 Placed in gown. Bed in low position. Call light in reach. Side rails up X 1. Warm jp3 blanket given. Pillow given. 12:22 Urine --Ancillary (enter results) Sent. jp3 12:22 Urine Dipstick--Ancillary (enter results) Sent. jp3 12:22 Urine Microscopic Only Sent. jp3 12:30 Initial lab(s) drawn, by me, sent to lab. Inserted saline lock: 20 gauge in right em antecubital area, using aseptic technique. Blood collected. 13:54 US Pelvis Complete In Process Unspecified. EDMS 13:54 Ultrasound completed. sg3 16:32 No provider procedures requiring assistance completed. IV discontinued, intact, em bleeding controlled, No redness/swelling at site. Pressure dressing applied. Administered Medications: 12:47 Drug: NS 0.9% 1000 ml Route: IV; Rate: 1 bolus; Site: right antecubital; em 14:00 Follow up: IV Status: Completed infusion; IV Intake: 1000ml em 12:50 Drug: TORadol 30 mg Route: IVP; Site: right antecubital; ss 13:18 Follow up: Response: No adverse reaction; Pain is decreased em 13:21 Drug: fentaNYL (PF) 50 mcg Route: IVP; Site: right antecubital; ss 14:00 Follow up: Response: No adverse reaction; Pain is unchanged, physician notified em 14:22 Drug: fentaNYL (PF) 50 mcg Route: IVP; Site: right antecubital; em 16:13 Follow up: Response: No adverse reaction; Pain is decreased em 16:22 Drug: [place] 10 mg-325 mg 1 tabs Route: PO; em 16:33 Follow up: Response: Medication administered at discharge. em 16:22 Drug: fentaNYL (PF) 50 mcg Route: IVP; Site: right antecubital; em 16:33 Follow up: Response: Medication administered at discharge. em Intake: 14:00 IV: 1000ml; Total: 1000ml. em Outcome: 15:56 Discharge ordered by MD. 16:33 Discharged to home ambulatory, with family. em 16:33 Condition: good 16:33 Discharge instructions given to patient, Instructed on discharge instructions, follow up and referral plans. medication usage, Demonstrated understanding of instructions, follow-up care, medications, Prescriptions given X 2. 16:35 Patient left the ED. em Signatures: Dispatcher [employer] Delores Hall, RN RN [email or web address] Bill Hall, TRAIL MAINTENANCE WORKER TRAIL MAINTENANCE WORKER Yenni Irene RN RN ss Francisco Pimentel MD MD Yasmeen Huggins 3 Zohra Mccabe2 Dereck Ott jp3
--- NOTE | 2018-02-13 15:57 | EDPHYS ---
Physician Documentation [facility] Name: Jolene Harris Age: 38 yrs Sex: Female : 1980 Arrival Date: 02/13/2018 Time: 11:50 Bed 19 Private MD: out of town, doctor ED Physician Francisco Pimentel HPI: 02/13 15:53 This 38 yrs old Female presents to ER via Ambulatory with complaints of gs Abdominal Pain. 15:53 The patient presents with pelvic pain, that is located in/on the left inguinal area. gs Onset: The symptoms/episode began/occurred 2 day(s) ago, and became persistent. Modifying factors: The symptoms are alleviated by nothing, the symptoms are aggravated by nothing. Associated signs and symptoms: Pertinent negatives: vomiting. Severity of symptoms: At their worst the symptoms were moderate, in the emergency department the symptoms have improved, markedly. The patient has experienced similar episodes in the past, a few times. 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 - Social history:: Smoking status: Patient uses tobacco products, smokes one-half pack cigarettes per day. - Ebola Screening: : Patient denies travel to an Ebola-affected area in the 21 days before illness onset. ROS: 15:53 All other systems are negative. gs Exam: 15:53 Head/Face: Normocephalic, atraumatic. Eyes: Pupils equal round and reactive to light, gs extra-ocular motions intact. Lids and lashes normal. Conjunctiva and sclera are non-icteric and not injected. Cornea within normal limits. Periorbital areas with no swelling, redness, or edema. ENT: Nares patent. No nasal discharge, no septal abnormalities noted. Tympanic membranes are normal and external auditory canals are clear. Oropharynx with no redness, swelling, or masses, exudates, or evidence of obstruction, uvula midline. Mucous membranes moist. Neck: Trachea midline, no thyromegaly or masses palpated, and no cervical lymphadenopathy. Supple, full range of motion without nuchal rigidity, or vertebral point tenderness. No Meningismus. Chest/axilla: Normal chest wall appearance and motion. Nontender with no deformity. No lesions are appreciated. Cardiovascular: Regular rate and rhythm with a normal S1 and S2. No gallops, murmurs, or rubs. Normal PMI, no JVD. No pulse deficits. Respiratory: Lungs have equal breath sounds bilaterally, clear to auscultation and percussion. No rales, rhonchi or wheezes noted. No increased work of breathing, no retractions or nasal flaring. Back: No spinal tenderness. No costovertebral tenderness. Full range of motion. Skin: Warm, dry with normal turgor. Normal color with no rashes, no lesions, and no evidence of cellulitis. MS/ Extremity: Pulses equal, no cyanosis. Neurovascular intact. Full, normal range of motion. Neuro: Awake and alert, GCS 15, oriented to person, place, time, and situation. Cranial nerves II-XII grossly intact. Motor strength 5/5 in all extremities. Sensory grossly intact. Cerebellar exam normal. Normal gait. 15:53 Constitutional: The patient appears alert, awake. 15:53 Abdomen/GI: Palpation: moderate abdominal tenderness, in the left lower quadrant, rebound tenderness, is not appreciated. Vital Signs: 11:56 BP 112 / 83; Pulse 96; Resp 20; Temp 97.0; Pulse Ox 100% on R/A; Weight 79.38 kg (R); aj1 Height 5 ft. 2 in. (157.48 cm) (R); Pain 10/10; 13:00 BP 133 / 81; Pulse 84; Resp 18; Pulse Ox 99% on R/A; Pain 10/10; em 14:00 BP 130 / 88; Pulse 85; Resp 18; Pulse Ox 98% on R/A; em 16:35 BP 121 / 76; Pulse 79; Resp 18; Pulse Ox 100% on R/A; em 11:56 Body Mass Index 32.01 (79.38 kg, 157.48 cm) aj1 MDM: 12:30 Patient medically screened. 15:53 Differential diagnosis: malignancy, nonspecific abdominal pain, ovarian cyst. Data reviewed: vital signs, nurses notes. Response to treatment: the patient's symptoms have markedly improved after treatment, the patient's condition has returned to base line, and as a result, I will discharge patient. ED course: spoke to dr jodi davidson will see 02/24. 02/13 12:13 Order name: Urine Microscopic Only; Complete Time: 13:34 gs 02/13 12:18 Order name: Urine Dipstick--Ancillary (enter results); Complete Time: 13:34 lt1 02/13 12:18 Order name: Urine --Ancillary (enter results); Complete Time: 13:34 lt1 02/13 12:32 Order name: CBC with Diff; Complete Time: 13:34 gs 02/13 12:32 Order name: Basic Metabolic Panel; Complete Time: 13:34 gs 02/13 12:32 Order name: US Pelvis Complete; Complete Time: 14:36 gs 02/13 12:13 Order name: Urine Test (obtain specimen); Complete Time: 12:22 gs 02/13 12:13 Order name: Urine Dipstick-Ancillary (obtain specimen); Complete Time: 12:22 gs Administered Medications: 12:47 Drug: NS 0.9% 1000 ml Route: IV; Rate: 1 bolus; Site: right antecubital; em 14:00 Follow up: IV Status: Completed infusion; IV Intake: 1000ml em 12:50 Drug: TORadol 30 mg Route: IVP; Site: right antecubital; ss 13:18 Follow up: Response: No adverse reaction; Pain is decreased em 13:21 Drug: fentaNYL (PF) 50 mcg Route: IVP; Site: right antecubital; ss 14:00 Follow up: Response: No adverse reaction; Pain is unchanged, physician notified em 14:22 Drug: fentaNYL (PF) 50 mcg Route: IVP; Site: right antecubital; em 16:13 Follow up: Response: No adverse reaction; Pain is decreased em 16:22 Drug: [place] 10 mg-325 mg 1 tabs Route: PO; em 16:33 Follow up: Response: Medication administered at discharge. em 16:22 Drug: fentaNYL (PF) 50 mcg Route: IVP; Site: right antecubital; em 16:33 Follow up: Response: Medication administered at discharge. em Disposition: 02/13/18 15:56 Discharged to Home. Impression: Neoplasm of uncertain behavior of ovary. - Condition is Stable. - Discharge Instructions: Ovarian Torsion. - Prescriptions for Tramadol 50 mg Oral Tablet - take 1 tablet by ORAL route every 8 hours as needed; 12 tablet. Zofran 4 mg Oral Tablet - take 1 tablet by ORAL route every 12 hours As needed; 12 tablet. - Medication Reconciliation Form, Thank You Letter, Antibiotic Education, Prescription Opioid Use form. - Follow up: Private Physician; When: 1 week; Reason: Recheck today's complaints, Re-evaluation by your physician. Signatures: Dispatcher [employer] Delores Hall RN RN aj1 Bill Hall, PCAT INSTRUCTOR PCAT INSTRUCTOR em Yenni Mackey RN RN ss Francisco Pimentel MD MD gs Corrections: (The following items were deleted from the chart) 16:35 15:56 02/13/2018 15:56 Discharged to Home. Impression: Neoplasm of uncertain behavior em of ovary. Condition is Stable. Forms are Medication Reconciliation Form, Thank You Letter, Antibiotic Education, Prescription Opioid Use. Follow up: Private Physician; When: 1 week; Reason: Recheck today's complaints, Re-evaluation by your physician. gs
[2018-02-13] MEDS ORDERED: HYDROCODONE/APAP 10/325 TAB ONE (16:25)
== END 2018-02-13 16:35 | disposition home or self-care (01) ==
LOC: ER 11:49
DX: D39.10 Neoplasm of uncertain behavior of unspecified ovary (principal); F17.210 Nicotine dependence, cigarettes, uncomplicated; Z85.43 Personal history of malignant neoplasm of ovary; Z91.048 Other nonmedicinal substance allergy status
CPT/HCPCS: 36415; 76856; 80048; 81003; 81015; 81025; 85025; 96361; 96374; 96375; 99284; J3010; J7030

== ENCOUNTER 2019-02-25 07:29 | Day surgery (SDC) | payer BC ==
--- NOTE | 2019-02-24 11:57 | EKG ---
Test Date: 2019-02-24 Test Time: 09:14:11 Air Conditioning Equipment Mechanic: SKG MEASUREMENT RESULTS: Intervals: Rate: 75 NJ: 146 QRSD: 72 QT: 396 QTc: 442 Grants: P: 14 NJ: 146 QRS: 22 T: 34 INTERPRETIVE STATEMENTS: Normal sinus rhythm with sinus arrhythmia Normal ECG No previous ECG available for comparison Electronically Signed On 02-24-19 11:56:51 PROGRAMMER OPERATOR NUMERICAL CONTROL by Sandip Escamilla
[~2019-02-25 07:29] MED LIST: BUPIVACA 0.5%/EPI 0.0005%/PF 10 ML VIAL ONE
[2019-02-25] MEDS ORDERED: Ringers Lactate 1,000 ML IV ONE (07:41)
[2019-02-25] MEDS ORDERED: FENTANYL CITR 100 MCG/2 ML ONE ×2 (08:36→09:13)
[2019-02-25] MEDS ORDERED: ROCURONIUM 50 MG/5 ML VIAL IV ONE (08:36)
[2019-02-25] MEDS ORDERED: MIDAZOLAM HCL 2 MG/2 ML INJ ONE (08:36)
[2019-02-25] MEDS ORDERED: LIDOCAINE 1% MPF 5 ML VIAL ONE (08:36)
[2019-02-25] MEDS ORDERED: propofoL 200 MG/20 ML VIAL IV ONE (08:36)
[2019-02-25] MEDS ORDERED: BUPIVACA 0.5%/EPI 0.0005%/PF 10 ML VIAL ONE (08:50)
[2019-02-25] MEDS ORDERED: dexAMETHasone 10 MG/ML VIAL ONE (09:19)
[2019-02-25] MEDS ORDERED: GLYCOPYRROLATE 0.2 MG/ML SYR ONE (09:21)
[2019-02-25] MEDS ORDERED: NEOSTIGMINE 1 MG/ML -10 ML VIAL ONE (09:22)
--- NOTE | 2019-02-25 09:34 | P.OP ---
Pre-Op Diagnosis: Chronic tonsillitis Post-Op Diagnosis: Chronic tonsillitis Procedure: Adenotonsillectomy Anesthesia: Other (GA via ETT) Fluids/ Blood products: Other (crystalloid 500ml) Estimated blood loss: Other (<5ml) Specimen: Other (bilateral tonsils) Findings: moderate adenoid tissue Complications: None Implants: None Indication: Patient persistent issues in spite of good medical management. Details of Operation: The patient was brought to the operating room and placed under general anesthesia via endotracheal tube. The head of bed was turned 90 degrees. A Shoulder roll was placed and the neck extended. A head drape was applied. The McIvor mouth gag was placed and suspended from the Jaime stand. The oxygen concentrate was confirmed with the product developer and was less than forty percent. Weight-based dexamethasone was administered by the product developer. The soft palate was palpated and there was no submucous cleft. A red rubber catheter was placed in the nose and secured to retract the soft palate. The tonsils were noted to be medium, cryptic and chronically inflammed. The left tonsil was grasped with a straight Allis clamp. The bovie electocautery was used to incision the mucosa over the anterior pillar and identify the tonsillar capsule. The tonsil was dissected using cautery and blunt dissection until free from soft tissue attachments. A tonsil ball was placed to aid hemostasis. The right tonsil was removed in a similar manner. The laryngeal mirror was used to visualize the nasopharynx. The adenoid size was medium. The adenoids were removed using suction cautery. Hemostasis was achieved using packing and cautery as needed. Blood loss was minimal. All packing was removed. The tonsillar fossae were injected with 0.5% Marcaine with epinephrine. A total of 3 mL was used. A Salum sump orogastric tube was used to decompress the stomach. The red rubber catheter was removed and used to suction the nasopharynx and nasal cavity. The mouth gag was removed; there was no evidence of injury to the lips, teeth or tongue. The mandible was mobile. Disposition: The patient was then awakened from anesthesia and taken to the recovery room in stable condition.
[2019-02-25] MEDS ORDERED: LABETALOL 20 MG/4ML SYRINGE IV ONE (09:41)
[2019-02-25] MEDS: ONDANSETRON 4 MG/2 ML VIAL ONE ×2 (09:50→11:24)
[2019-02-25] MEDS: HYDROMORPHONE HCL 1 MG/ML INJ ONE ×4 (09:53→10:11)
[2019-02-25] MEDS ORDERED: PROMETHAZINE INJ 25 MG/ML AMP ONE (10:14)
[2019-02-25] MEDS ORDERED: SCOPOLAMINE HYDROBROMIDE PATCH TD ONE (11:20)
[2019-02-25] MEDS ORDERED: ONDANSETRON 4 MG/2 ML VIAL ONE (11:21)
[2019-02-25] MEDS ORDERED: HYDROCOD 2.5mg-ACETAMIN 108mg/5mL Soln ONE (12:15)
[2019-02-25 13:10] VITALS: BP 107/70; TEMP 97.9; O2SAT 94
== END 2019-02-25 12:44 | disposition home or self-care (01) ==
LOC: OR 07:29
PROVIDERS: ATTEND Otolaryngology
PROC: 0CTQXZZ Resection of Adenoids, External Approach (ICD-10-PCS; 2019-02-25)
PROC: 0CTPXZZ Resection of Tonsils, External Approach (ICD-10-PCS; principal; 2019-02-25 08:30)
DX: J35.01 Chronic tonsillitis (principal)
CPT/HCPCS: 93005; 88304; 42821; J2704; J2710; J2550; J2250; J3010 ×2; J1100; J1170 ×2; J7120; J2405 ×2